=== PATIENT | male | born 1975 | race Caucasian/White ===

== ENCOUNTER 2020-10-31 10:17 | Emergency (ER) | payer OTHER ==
[~2020-10-31] VITALS: Ht 185.4 cm; Wt 90.7 kg
[2020-10-31 10:22] VITALS: BP 132/64
[2020-10-31] MEDS ORDERED: ASPIRIN 81 MG TAB.CHEW PO ONE (10:40)
[2020-10-31 10:49] LABS: BASOPHILS % (AUTO) 0.5 % (0.0-2.0); EOSINOPHILS # (AUTO) 0.1 K/uL (0-0.4); HEMATOCRIT 45.7 % (36-52); HEMOGLOBIN 15.7 g/dL (12.0-18.0); LYMPHOCYTES # (AUTO) 1.8 K/uL (2.0-11.5); LYMPHOCYTES % (AUTO) 29.2 % (20.5-51.1); MEAN CORPUSCULAR HEMOGLOBIN 31 pg (27-31); MEAN CORPUSCULAR HGB CONC 34 g/dL (33-37); MEAN CORPUSCULAR VOLUME 91.2 fL (80-94); MONOCYTES # (AUTO) 0.4 K/uL (0.8-1.0); MONOCYTES % (AUTO) 6.5 % (1.7-9.3); NEUTROPHILS # (AUTO) 3.8 K/uL (1.8-7.7); NEUTROPHILS % (AUTO) 62.8 % (42.2-75.2); PLATELET COUNT (AUTO) 188 K/uL (140-450); RED BLOOD CELL COUNT(AUTO) 5.01 MIL/uL (4.20-6.10); WHITE BLOOD COUNT (AUTO) 6.1 K/uL (4.8-10.8)
--- NOTE | 2020-10-31 10:50 | NUR ---
45 Y/O MALE PRESENTS WITH GRADUAL ONSET OF CHEST PAIN THAT BEGAN YESTERDAY WHILE WALKING, PATIENT STATES THAT SINCE YESTERDAY PAIN HAS BEEN INTERMITTENT, 8/10, SHARP PRESSURE PAIN WITH TIGHTNESS, NON RADIATING. PATIENT DENIES ANY SOB/FEVER/CHILLS. AMBULATORY WITH STEADY GAIT.
--- NOTE | 2020-10-31 11:10 | NUR ---
[facility] COLEMAN AT BEDSIDE PERFORMING TRIAGE
[2020-10-31 11:14] LABS: ALBUMIN 4.3 g/dL (3.4-5.0); FREE T4 (FREE THYROXINE) 0.96 ng/dL (0.76-1.46); THYROID STIMULATING HORMONE 1.55 uIU/mL (0.34-3.74); TOTAL BILIRUBIN 0.5 mg/dL (0.0-1.0)
[2020-10-31 13:54] VITALS: BP 114/70
--- NOTE | 2020-10-31 13:54 | NUR ---
Patient discharged with v/s stable. Written and verbal after care instructions given and explained. Patient verbalized understanding. Ambulatory with steady gait. All questions addressed prior to discharge. Advised to follow up with PMD.
== END 2020-10-31 13:54 | disposition home or self-care (01) ==
LOC: MED 10:17
DX: R07.89 Other chest pain (principal); F12.90 Cannabis use, unspecified, uncomplicated
CPT/HCPCS: 36415; 71045; 80053; 84439; 84443; 84484; 85025; 93005; 99285